=== PATIENT | female | born 1990 | race Caucasian/White ===

== ENCOUNTER 2017-10-03 01:44 | Emergency (ER) | payer SELFPAY ==
[2013-12-01 09:51] VITALS: Wt 72.6 kg
[~2017-10-03 01:44] MED LIST: Ibuprofen PO; LOR5/325 PO
[2017-10-03] MEDS ORDERED: NS 0.9% 150 ML BAG 150 ML ONE (02:00)
[2017-10-03] MEDS ORDERED: IOPAMIDOL 76% 75 ML INFUS BTL 75 ML ONE (02:00)
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
[2017-10-03 02:35] LABS: PLATELET COUNT, AUTOMATED 250 K/uL (150-450)
[2017-10-03] MEDS ORDERED: WATER FOR INJ,STERILE 20 ML 20 ML ONE (02:48)
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
[2017-10-03] MEDS ORDERED: IBUPROFEN 600 MG TAB PO ONE (05:00)
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
[2017-10-03 05:30] VITALS: BP 122/82
== END 2017-10-03 05:46 | disposition home or self-care (01) ==
LOC: ER 02:10
DX: S00.83XA Contusion of other part of head, initial encounter (principal); Y04.2XXA Assault by strike against or bumped into by another person, initial encounter
CPT/HCPCS: 70450; 70486; 70498; 80320; 84703; 85025; 99284; Q9967; 82310; 82374; 82435; 82565; 82947; 84132; 84295; 84520